=== PATIENT | female | born 1950 | race Caucasian/White ===

== ENCOUNTER 2018-05-17 06:27 | Day surgery (SDC) | payer MEDICARE ==
[2018-05-17] MEDS: LIDOCAINE 3.5 % 1ML OPHTH TOPICAL GEL OU (07:00)
[2018-05-17] MEDS ORDERED: fentaNYL 100 MCG/2 ML INJECTION (J3010) As Ordered (07:37)
[2018-05-17] MEDS ORDERED: MIDAZOLAM INJ 2 MG/2 ML VIAL (J2250) As Ordered (07:37)
[2018-05-17] MEDS ORDERED: PROPOFOL 200 MG/20 ML VIAL As Ordered (08:04)
[2018-05-17] MEDS: POVIDONE-IODINE 5% OPHTH PREP SOL 30ML As Ordered (08:11)
[2018-05-17] MEDS: LIDOCAINE 2% MDV 20 ML VIAL As Ordered (08:15)
[2018-05-17] MEDS: TOBRADEX OPHTH OINT 3.5 GM As Ordered (08:55)
== END 2018-05-17 09:35 | disposition home or self-care (01) ==
LOC: M SDC 06:27
DX: C44.119 Basal cell carcinoma of skin of left eyelid, including canthus (principal); I10 Essential (primary) hypertension; K50.90 Crohn's disease, unspecified, without complications; E78.4 Other hyperlipidemia; F17.210 Nicotine dependence, cigarettes, uncomplicated; E55.9 Vitamin D deficiency, unspecified; Z79.899 Other long term (current) drug therapy
CPT/HCPCS: 67961

== ENCOUNTER → 2019-04-07 | Outpatient (REF) | payer MEDICARE ==
[~2019-04-07] MED LIST: CALC-196 PO; HYDR25TAB PO; SULF500T2 PO; VITA50005 PO
== END ==
LOC: M LAB LCGH 13:50
PROVIDERS: ATTEND Surgery
DX: C44.319 Basal cell carcinoma of skin of other parts of face (principal); C44.612 Basal cell carcinoma of skin of right upper limb, including shoulder